=== PATIENT | female | born 1970 | race Caucasian/White ===

== ENCOUNTER → 2016-10-16 | Outpatient (CLI) | payer BC, OTHER | LOC: RAD 04:23 | DX: Z12.31 Encounter for screening mammogram for malignant neoplasm of breast (principal) ==

== ENCOUNTER → 2017-10-27 | Outpatient (CLI) | payer BC, OTHER | LOC: RAD 00:41 | DX: Z12.31 Encounter for screening mammogram for malignant neoplasm of breast (principal) ==

== ENCOUNTER → 2019-04-15 | Outpatient (CLI) | payer OTHER | LOC: RAD 10-30 13:53 | DX: Z12.31 Encounter for screening mammogram for malignant neoplasm of breast (principal) ==

== ENCOUNTER → 2020-04-18 | Outpatient (CLI) | payer OTHER | LOC: BC 10:18 | PROVIDERS: ATTEND Obstetrics & Gynecology | DX: Z12.31 Encounter for screening mammogram for malignant neoplasm of breast (principal) ==

== ENCOUNTER → 2020-05-17 | Outpatient (CLI) | payer OTHER | LOC: BC 12:10 | PROVIDERS: ATTEND Radiology Diagnostic Radiology | DX: N63.20 Unspecified lump in the left breast, unspecified quadrant (principal) ==

== ENCOUNTER → 2021-07-30 | Outpatient (CLI) | payer OTHER | LOC: BC 13:33 | PROVIDERS: ATTEND Obstetrics & Gynecology | DX: Z12.31 Encounter for screening mammogram for malignant neoplasm of breast (principal) ==